=== PATIENT | male | born 1945 | race African-American/Black ===

== ENCOUNTER 2017-01-16 13:09 | Inpatient (IN) | payer BC, OTHER ==
[~2017-01-16] VITALS: Ht 182.9 cm; Wt 86.2 kg
[2017-01-16] MEDS ORDERED: LOSA25TA12 PO (13:19)
[2017-01-16] MEDS ORDERED: DIGO250T4 PO (13:19)
[2017-01-16] MEDS ORDERED: DOXA2TAB PO (13:19)
[2017-01-16] MEDS ORDERED: PREG50CA PO (13:19)
[2017-01-16 14:04] LABS: HEMATOCRIT. 33.4 % (42.0-52.0); HEMOGLOBIN. 11.1 g/dL (14.0-18.0); MEAN CORPUSCULAR HEMOGLOBIN 27.9 pg (28.0-32.0); MEAN CORPUSCULAR VOLUME 83.6 fL (80.0-94.0); MEAN PLATELET VOLUME 7.8 fl (7.4-10.4); PLATELET 180 x1000/uL (130-400); RED BLOOD CELL COUNT 3.99 mill/uL (4.7-6.1)
[2017-01-16 14:14] LABS: INR 1.1; PARTIAL THROMBOPLASTIN TIME 23.1 sec (24.0-34.0); PROTHROMBIN TIME 11.6 sec
[2017-01-16 14:16] LABS: CARBON DIOXIDE 27 mEq/L (21-32); CHLORIDE 108 mEq/L (98-107)
[2017-01-16 14:23] LABS: CREATINE KINASE MB FRACTION 1.7 ng/mL (0.5-3.6); TROPONIN I < 0.02 ng/mL (0.00-0.04)
[2017-01-16 14:31] LABS: PLATELET ESTIMATE NORMAL
[2017-01-16] MEDS ORDERED: SODIUM CHLORIDE 0.45% 1,000 ML IV SCH (14:33)
[2017-01-16 14:36] LABS: DIGOXIN < 0.1 ng/mL (0.9-2.0)
[2017-01-16] MEDS ORDERED: NA PHOS,M-B/NA PHOS,DI-BA ENEMA 118ML PR PRN (14:45)
[2017-01-16] MEDS ORDERED: IPRATROPIUM/ALBUTEROL 0.5-3(2.5)MG/3ML NEB INH PRN (14:45)
[2017-01-16] MEDS ORDERED: DOCUSATE SODIUM 100MG CAPSULE PO PRN (14:45)
[2017-01-16] MEDS ORDERED: DIPHENHYDRAMINE 50MG/ML VIAL IV PRN (14:45)
[2017-01-16] MEDS ORDERED: ONDANSETRON HCL 4MG/2ML VIAL IV PRN (14:45)
[2017-01-16] MEDS ORDERED: MAGNESIUM/ALUMINUM HYDROXIDE/SIMETHICONE 30ML UDC PO PRN (14:45)
[2017-01-16] MEDS ORDERED: ACETAMINOPHEN 325MG TABLET PO PRN (14:45)
[2017-01-16] MEDS ORDERED: LORAZEPAM 2MG/ML CPJ IV PRN (14:45)
[2017-01-16] MEDS ORDERED: GUAIFENESIN 200MG/10ML SUGAR FREE UDC PO PRN (14:45)
[2017-01-16 15:19] LABS: GLUCOSE URINE NEGATIVE (NEGATIVE); KETONES URINE NEGATIVE (NEGATIVE); LEUKOCYTE ESTERASE URINE 3+ (NEGATIVE); NITRITE URINE NEGATIVE (NEGATIVE); OCCULT BLOOD URINE 3+ (NEGATIVE); PROTEIN URINE NEGATIVE (NEGATIVE); SPECIFIC GRAVITY URINE 1.014 (1.005-1.030); UROBILINOGEN URINE 0.2 E.U./dL (0.2-1.0)
[2017-01-16 15:20] LABS: COLOR URINE YELLOW (YELLOW)
[2017-01-16 15:21] LABS: CLARITY URINE SL HAZY (CLEAR)
[2017-01-16] MEDS ORDERED: CEFTRIAXONE 1 G PREMIX 50 ML IV ONE (16:30)
[2017-01-16 18:00] VITALS: BP 92/63
[2017-01-16 20:00] VITALS: BP 83/51
[2017-01-16] MEDS ORDERED: DEXTROSE 50% WATER 50ML SYRINGE IV PRN (20:00)
[2017-01-16] MEDS ORDERED: SODIUM CHLORIDE 0.9% 500 ML IV NR (20:15)
[2017-01-16] MEDS ORDERED: CHOL100046 PO (20:49)
[2017-01-16] MEDS ORDERED: NAPR-217 PO (20:49)
[2017-01-16] MEDS ORDERED: VALERIAN ROOT PO (20:49)
[2017-01-16] MEDS ORDERED: FERR-63 PO (20:49)
[2017-01-16] MEDS ORDERED: VITAMIN E PO (20:49)
[2017-01-16] MEDS ORDERED: COD LIVER OIL PO (20:49)
[2017-01-16] MEDS ORDERED: CYAN10009 PO (20:49)
[2017-01-16] MEDS ORDERED: TEMA30CA5 PO (20:49)
[2017-01-16] MEDS ORDERED: OCD PO (20:50)
[2017-01-16] MEDS: BLOOD SUGAR DIAGNOSTIC STRIP TEST SCH (20:53)
[2017-01-16] MEDS: INSULIN LISPRO 100 UNITS/ML SUBCUT SCH (20:53)
[2017-01-16 21:15] VITALS: BP 98/64
[2017-01-16] MEDS ORDERED: TEMAZEPAM 15MG CAPSULE PO PRN (21:15)
[2017-01-16] MEDS: HYDROCODONE/ACETAMINOPHEN 5/325MG TABLET PO PRN (22:00)
[2017-01-17] VITALS (10 sets, daily range): BP systolic 74–130; BP diastolic 42–79
[2017-01-17] MEDS ORDERED: SODIUM CHLORIDE 0.9% 500 ML IV ONE (04:45)
[2017-01-17] MEDS: SODIUM CHLORIDE 0.9% 1,000 ML IV SCH ×2 (06:08→13:59)
[2017-01-17] MEDS: BLOOD SUGAR DIAGNOSTIC STRIP TEST SCH ×4 (06:22→22:00)
[2017-01-17] MEDS: INSULIN LISPRO 100 UNITS/ML SUBCUT SCH ×4 (06:22→22:00)
[2017-01-17 08:02] LABS: CHLORIDE 110 mEq/L (98-107)
[2017-01-17 08:38] LABS: HEMATOCRIT. 31.2 % (42.0-52.0); MEAN CORPUSCULAR HEMOGLOBIN 27.3 pg (28.0-32.0); MEAN CORPUSCULAR VOLUME 84.2 fL (80.0-94.0); MEAN PLATELET VOLUME 7.6 fl (7.4-10.4); PLATELET 162 x1000/uL (130-400); RED BLOOD CELL COUNT 3.71 mill/uL (4.7-6.1); RED CELL DISTRIBUTION WIDTH 14.2 % (11.6-14.6)
[2017-01-17 08:41] LABS: HEMOGLOBIN. 10.1 g/dL (14.0-18.0)
[2017-01-17 08:45] LABS: CARBON DIOXIDE 21 mEq/L (21-32); CREATINE KINASE 152 IU/L (39-308); CREATINE KINASE MB FRACTION 0.9 ng/mL (0.5-3.6); HDL CHOLESTEROL 43 mg/dL (40-59); LDL CHOLESTEROL 70 mg/dL (5-100); T4 FREE 0.92 ng/dL (0.76-1.46); TROPONIN I < 0.02 ng/mL (0.00-0.04)
[2017-01-17] MEDS ORDERED: DIGOXIN 250MCG TABLET PO SCH (09:00)
[2017-01-17 09:53] LABS: PLATELET ESTIMATE NORMAL
[2017-01-17 12:30] LABS: *AMPHETAMINES SCREEN URINE NEGATIVE (NEGATIVE); *BARBITURATES SCREEN URINE NEGATIVE (NEGATIVE); *BENZODIAZEPINES SCREEN URINE PRESUMTIVE POSITIVE (NEGATIVE); *COCAINE SCREEN URINE NEGATIVE (NEGATIVE); CANNABINOID URINE SCREEN PRESUMTIVE POSITIVE (NEGATIVE); METHADONE URINE SCREEN NEGATIVE (NEGATIVE); OPIATES URINE SCREEN NEGATIVE (NEGATIVE); PHENCYCLIDINE URINE SCREEN NEGATIVE (NEGATIVE)
[2017-01-17] MEDS: HYDROCODONE/ACETAMINOPHEN 5/325MG TABLET PO PRN (15:16)
[2017-01-17] MEDS ORDERED: DIGOXIN 125MCG TABLET PO SCH (18:00)
[2017-01-17] MEDS: CYCLOBENZAPRINE 10MG TABLET PO PRN (18:35)
[2017-01-17] MEDS: HYDROMORPHONE HCL/PF 2MG/ML CPJ IV PRN (20:28)
[2017-01-18] VITALS: BP 107/58
[2017-01-18 04:00] VITALS: BP_SYST 112; BP_SYST 132; BP_SYST 139; BP_DIAS 104; BP_DIAS 75; BP_DIAS 96
[2017-01-18] MEDS: HYDROMORPHONE HCL/PF 2MG/ML CPJ IV PRN ×5 (04:11→23:58)
[2017-01-18] MEDS: CYCLOBENZAPRINE 10MG TABLET PO PRN ×2 (04:21→18:35)
[2017-01-18] MEDS: SODIUM CHLORIDE 0.9% 1,000 ML IV SCH ×3 (04:21→21:22)
[2017-01-18 05:52] LABS: HEMATOCRIT. 32.1 % (42.0-52.0); HEMOGLOBIN. 10.6 g/dL (14.0-18.0); MEAN CORPUSCULAR HEMOGLOBIN 27.6 pg (28.0-32.0); MEAN CORPUSCULAR VOLUME 83.9 fL (80.0-94.0); MEAN PLATELET VOLUME 8.6 fl (7.4-10.4); PLATELET 145 x1000/uL (130-400); RED BLOOD CELL COUNT 3.83 mill/uL (4.7-6.1); RED CELL DISTRIBUTION WIDTH 14.5 % (11.6-14.6)
[2017-01-18] MEDS: INSULIN LISPRO 100 UNITS/ML SUBCUT SCH ×4 (06:37→21:00)
[2017-01-18] MEDS: BLOOD SUGAR DIAGNOSTIC STRIP TEST SCH ×4 (06:37→21:21)
[2017-01-18 07:40] LABS: PLATELET ESTIMATE NORMAL
[2017-01-18 08:13] VITALS: BP 106/66
[2017-01-18 11:57] VITALS: BP 109/73
[2017-01-18 16:08] VITALS: BP 107/87
[2017-01-18 20:00] VITALS: BP 117/75
[2017-01-19] VITALS: BP 113/72
[2017-01-19] MEDS ORDERED: LEVOFLOXACIN 500MG PREMIX 100 ML IV SCH (02:00)
[2017-01-19 04:00] VITALS: BP 104/65
[2017-01-19 04:45] VITALS: BP_SYST 122; BP_SYST 138; BP_SYST 142; BP_DIAS 77; BP_DIAS 91; BP_DIAS 92
[2017-01-19] MEDS: CYCLOBENZAPRINE 10MG TABLET PO PRN ×2 (05:05→11:36)
[2017-01-19] MEDS: HYDROMORPHONE HCL/PF 2MG/ML CPJ IV PRN ×2 (05:07→10:54)
[2017-01-19] MEDS: INSULIN LISPRO 100 UNITS/ML SUBCUT SCH ×2 (06:39→12:15)
[2017-01-19] MEDS: BLOOD SUGAR DIAGNOSTIC STRIP TEST SCH ×2 (06:39→11:45)
[2017-01-19 06:43] LABS: HEMATOCRIT. 30.6 % (42.0-52.0); HEMOGLOBIN. 10.2 g/dL (14.0-18.0); MEAN CORPUSCULAR HEMOGLOBIN 27.7 pg (28.0-32.0); MEAN CORPUSCULAR VOLUME 82.9 fL (80.0-94.0); MEAN PLATELET VOLUME 8.9 fl (7.4-10.4); PLATELET 148 x1000/uL (130-400); RED BLOOD CELL COUNT 3.68 mill/uL (4.7-6.1); RED CELL DISTRIBUTION WIDTH 14.4 % (11.6-14.6)
[2017-01-19] MEDS: SODIUM CHLORIDE 0.9% 1,000 ML IV SCH (07:04)
[2017-01-19 07:06] LABS: CARBON DIOXIDE 22 mEq/L (21-32); CHLORIDE 108 mEq/L (98-107)
[2017-01-19 08:00] VITALS: BP 127/91
[2017-01-19 09:14] VITALS: BP 127/91
[2017-01-19 10:16] LABS: PLATELET ESTIMATE NORMAL
[2017-01-19 12:00] VITALS: BP 151/94
== END 2017-01-19 10:06 | disposition home or self-care (01) | DRG 682 ==
LOC: ER 13:26 → 5WST 14:39 → EDBEDREQ 14:44 → ENRESERV 16:12
PROVIDERS: ADMIT Internal Medicine; ATTEND Internal Medicine
DX: N17.0 Acute kidney failure with tubular necrosis (principal); G93.41 Metabolic encephalopathy; E46 Unspecified protein-calorie malnutrition; N39.0 Urinary tract infection, site not specified; R65.10 Systemic inflammatory response syndrome (SIRS) of non-infectious origin without acute organ dysfunction; G90.8 Other disorders of autonomic nervous system; E11.649 Type 2 diabetes mellitus with hypoglycemia without coma; D63.8 Anemia in other chronic diseases classified elsewhere; E03.9 Hypothyroidism, unspecified; E11.22 Type 2 diabetes mellitus with diabetic chronic kidney disease; E78.5 Hyperlipidemia, unspecified; R55 Syncope and collapse; E86.0 Dehydration; E86.1 Hypovolemia; F12.90 Cannabis use, unspecified, uncomplicated; G89.4 Chronic pain syndrome; I12.9 Hypertensive chronic kidney disease with stage 1 through stage 4 chronic kidney disease, or unspecified chronic kidney disease; N18.9 Chronic kidney disease, unspecified; I95.89 Other hypotension; K57.90 Diverticulosis of intestine, part unspecified, without perforation or abscess without bleeding; N40.1 Benign prostatic hyperplasia with lower urinary tract symptoms; R31.0 Gross hematuria; Z86.73 Personal history of transient ischemic attack (TIA), and cerebral infarction without residual deficits; Z68.25 Body mass index [BMI] 25.0-25.9, adult
CPT/HCPCS: 36415; 51702; 70450; 71010; 74176; 80048; 80053; 80061; 80162; 80305; 81001; 82550; 82553; 82962; 83735; 83880; 84439; 84443; 84484; 85025; 85379; 85610; 85730; 86850; 86900; 87040; 87077; 87086; 93005; 93306; 93970; 97162; 97535; 99285; J1170; J1956; J7030; J7040; A4315

== ENCOUNTER 2019-11-23 01:46 | Emergency (ER) | payer BC, MEDICAID, OTHER ==
[~2019-11-23] VITALS: Ht 170.2 cm; Wt 81.0 kg
[~2019-11-23 01:46] MED LIST: CHOL100046 PO; COD LIVER OIL PO; CYAN-50 PO; DIGO250T4 PO; DOXA2TAB PO; FERR-63 PO; LOSA25TA26 PO; NAPR-1176 PO; OCD PO; PREG50CA PO; TEMA30CA5 PO; VALERIAN ROOT PO; VITAMIN E PO
[2019-11-23] MEDS ORDERED: SODIUM CHLORIDE 0.9% 1,000 ML IV ONE (02:20)
[2019-11-23] MEDS ORDERED: ONDANSETRON HCL 4MG/2ML INJ IV STA (02:20)
[2019-11-23 03:38] LABS: BASOPHILS % 0.3 % (0.0-2.0); CHLORIDE 105 mEq/L (98-107); EOSINOPHILS % 0.8 % (0.0-5.0); HEMATOCRIT. 36.7 % (42.0-52.0); HEMOGLOBIN. 12.2 g/dL (14.0-18.0); LYMPHOCYTES % 8.7 % (20.0-50.0); MEAN CORPUSCULAR HEMOGLOBIN 28.7 pg (28.0-32.0); MEAN CORPUSCULAR VOLUME 85.9 fL (80.0-94.0); MEAN PLATELET VOLUME 9.1 fl (7.4-10.4); MONOCYTES % 10.3 % (2.0-8.0); NEUTROPHILS % 79.9 % (40.0-76.0); PLATELET 147 x1000/uL (130-400); RED BLOOD CELL COUNT 4.27 mill/uL (4.7-6.1); RED CELL DISTRIBUTION WIDTH 14.1 % (11.6-14.6)
[2019-11-23 04:16] VITALS: BP 130/68
== END 2019-11-23 06:06 | disposition home or self-care (01) ==
LOC: ER 01:46
DX: R55 Syncope and collapse (principal); I95.9 Hypotension, unspecified; S00.81XA Abrasion of other part of head, initial encounter; I10 Essential (primary) hypertension; N40.0 Benign prostatic hyperplasia without lower urinary tract symptoms; W01.0XXA Fall on same level from slipping, tripping and stumbling without subsequent striking against object, initial encounter; Y93.89 Activity, other specified; Y92.018 Other place in single-family (private) house as the place of occurrence of the external cause
CPT/HCPCS: 36415; 70450; 71045; 80053; 84484; 85025; 93005; 96361; 96374; 99285; J2405; J7030